=== PATIENT | male | born 1955 | race Two or more races ===

== ENCOUNTER 2017-05-01 12:01 | Emergency (ER) | payer MEDICAID ==
[~2017-05-01] VITALS: Ht 180.3 cm; Wt 78.0 kg
[2017-05-01 12:22] VITALS: BP 171/114
== END 2017-05-01 18:25 | disposition left against medical advice (07) ==
LOC: ER 14:01
DX: R10.9 Unspecified abdominal pain (principal); Z53.21 Procedure and treatment not carried out due to patient leaving prior to being seen by health care provider